=== PATIENT | female | born 1975 | race Caucasian/White ===

== ENCOUNTER 2017-02-22 15:59 | Emergency (ER) | payer OTHER ==
--- NOTE | 2017-02-22 17:50 | ED NURSING NOTES ---
Clinical Report - Nurses [facility] [address] [place] [address] 02/22/2017 16:00 Patient: JOHANNA JACOB TRIAGE Acuity: LEVEL 3. Chief Complaint: VAGINAL BLEEDING. Alert. No acute distress. SEPSIS SCREEN: Sepsis Screen. Negative (no infection suspected/documented). FANNY COMA SCORE: [place] Coma Scale: 15- eyes open spontaneously (4); best verbal response- oriented x 4 (5); best motor response- obeys commands (6). --16:19 Ashely Almaraz R.N. 16:07 02/22/17. BP: 152/60. HR: 92. RR: 18. O2 saturation: 98%. Temp: 98.3 F (oral). Pain level now: 8/10. --16:19 Ashely Almaraz R.N. Weight: 70.3 kg stated. Height/Length: 67 inches Per Patient. BMI: 24.3. --16:16 Ashely Almaraz R.N. Medications Zoloft Oral. --16:12 Ashely Almaraz R.N. Medication/allergy information source: the patient. --16:19 Ashely Almaraz R.N. Allergies No Known Drug Allergy. --16:12 Ashely Almaraz R.N. History Arrived by private vehicle. Historian: patient. Accompanied by friend. Onset. (14 days ago). ( Pt reports she started her period 14 days ago and it has not stopped. Pt states she is soaking a plus size tampon every hour to hour and one half.). Treatment UNION CONTRACT REPRESENTATIVE: None. PAST MEDICAL HX: Last normal menstrual period was 2 weeks ago. No contraception. Has had a tubal ligation. Not sexually active. SOCIAL HX: Current every day light tobacco smoker (cigarette)- less than 1/2 a pack per day. No alcohol use or drug use. FALL RISK ASSESSMENT: Fall risk assessment completed. No fall risk identified. NUTRITIONAL RISK ASSESSMENT: The nutritional risk assessment revealed no deficiencies. FUNCTIONAL ASSESSMENT: Functional assessment: no impairments noted. LEARNING NEEDS ASSESSMENT: The learning needs assessment revealed no barriers. SKIN INTEGRITY ASSESSMENT: Skin integrity risk assessment completed. No skin integrity risk identified. --16:19 Ashely Almaraz R.N. PROBLEMS: Depression. Anxiety disorder. --16:15 Ashely Almaraz R.N. ADDITIONAL SURGERIES: . Tubal Ligation. --16:15 Ashely Almaraz R.N. Assessment GENERAL / NEURO / PSYCH: Alert. Oriented X 4. Appears in no acute distress. Patient appears calm and cooperative. RESPIRATORY: Respirations not labored. CVS: Capillary refill less than 2 seconds. GI / : Abdomen soft and nontender. SKIN: Mucous membranes are pink. Skin is warm and dry. --16:19 Ashely Almaraz R.N. Interventions ID band on patient. To treatment room. --16:19 Ashely Almaraz R.N. PHYSICAL ASSESSMENT 16:19 02/22/17. Ambulatory to room. GENERAL / NEURO / PSYCH: Alert. Oriented X 4. Appears in no acute distress. HEENT: Pupils equal, round and reactive to light. No facial asymmetry noted. Mucous membranes are pink. RESPIRATORY: Respirations not labored. CVS: Capillary refill less than 2 seconds. GI / : Abdomen nontender. SKIN: Skin intact. Skin is warm and dry. Normal skin turgor. --16:19 Ashely Almaraz R.N. NURSING PROGRESS NOTES Patient gowned. Reassurance given. Two patient identifiers checked. Checked patient name and birthdate: patient confirmed. Call light placed in reach. Side rails up x 1. Bed placed in lowest position. Brakes of bed on. Patient ready for evaluation- chart flagged and ED physician and CLIENT ENGAGEMENT MANAGER notified. --16:10 Ashely Almaraz R.N. 16:21 02/22/2017 Site #1 started via IV in the left antecubital space with an 20g angiocath, with aseptic technique and good blood return; one attempt. Blood drawn: rainbow set. Labeled in the presence of the patient and sent to the lab. Saline lock flushed with 10 mL saline. --16:36 Ashely Almaraz R.N. PELVIC EXAM: Pelvic exam performed by CLIENT ENGAGEMENT MANAGER. Assisted by one nurse. Preparation: pelvic tray. Procedure: speculum and bimanual exam. Light amount of vaginal bleeding noted. Specimens collected and sent to lab: wet prep. Status post-procedure: she was stable and no complications were noted. Total time of assist / procedure: 15 minutes. --17:07 Ashely Almaraz R.N. 18:13 02/22/2017 Toradol IVP 30 mg given over 1 minute(s) via site #1. Allergies verified and confirmed 5 rights. IV patency established. IV site checked: no pain, redness, or swelling. IV flushed thoroughly pre- and post-medication administration. IVP given by RN. --18:23 Ashely Almaraz R.N. DISPOSITION / DISCHARGE Departure time: 18:20 Feb 22 2017. Condition at departure: improved and stable. No learning barriers present. Discharge instructions provided and reviewed with the patient. Reviewed medication(s) side effects, precautions and dosing information. Prescription(s) given to the patient (Ultram). Patient verbalized understanding. Written instructions provided in [place]. The patient was discharged by the nurse practitioner. She was discharged home and accompanied by manufacturing production manager. She left the Emergency Department ambulatory and via private vehicle. Occupational Health And Safety Adviser driving. --18:32 Ashely Almaraz R.N. 18:31 02/22/17. BP: 128/73. HR: 74. RR: 16. O2 saturation: 100%. Temp: 98.3 F (oral). Pain level now: 10. --18:32 Ashely Almaraz R.N. 18:18 02/22/2017 Site #1 removed upon discharge. Catheter intact. Manual pressure and bandage applied. --18:33 Ashely Almaraz R.N. Locked/Released at 02/22/2017 18:33 by Ashely Almaraz R.N.
--- NOTE | 2017-02-22 17:50 | ED CLINICAL REPORT ---
Clinical Report - Physicians/Mid Levels [facility] [address] [place] [address] 02/22/2017 16:00 [id number] Time Seen: 16:42; initial patient contact, initial documentation, patient care assumed. Arrived- By private vehicle. Historian- patient. HISTORY OF PRESENT ILLNESS Chief Complaint: VAGINAL BLEEDING. This started about 2 weeks ago and still present. The symptoms are described as moderate. Modifying factors. Not worsened by anything. Not relieved by anything. The patient has had moderate, constant, crampy pelvic pain, described as "pain". She has had abnormal bleeding described as heavier than normal period soaking tampon every hour. No abdominal pain, vaginal pain, low back pain, flank pain or vaginal discharge. No vaginal itching, genital lesions, pain with urination, urinary frequency or urgency of urination. No hematuria. She has recently had irregular periods (periods normally last 4 days, last month she bled for 10 days and this time she is on day 14). They have been longer than normal and consisted of heavier than normal flow. Not sexually active. Denies current . Similar symptoms previously: None. Recent medical care: The patient was seen recently in the office. ( went to her dr last month when this started, pelvic exam normal, nothing else done and no f/u yet, has appt 03/11). REVIEW OF SYSTEMS No vomiting, diarrhea, fever, difficulty breathing or chest pain. All systems otherwise negative, except as recorded above. PAST HISTORY See nurses notes. ( PROBLEMS: Depression. Anxiety disorder. --16:15 Ashely Almaraz, RAllisonN. ADDITIONAL SURGERIES: . Tubal Ligation. --16:15 Ashely Almaraz RRicarda.). SOCIAL HISTORY Light tobacco smoker. No alcohol use or drug use. No recent travel. Is a local resident. FAMILY HISTORY Negative. ADDITIONAL NOTES The nursing notes have been reviewed with agreement regarding the chief complaint, HPI, ROS, PMH and patient medications and allergies. PHYSICAL EXAM Vital Signs: 02/22/2017 16:07 BP: 152/60. HR: 92. RR: 18. O2 saturation: 98%. Temp: 98.3 F. Pain level now: 04/01. Have been reviewed as normal and appear to be correct. Appearance: Alert. Oriented X3. No acute distress. HEENT: Normal external inspection. ENT: Pharynx normal. Neck: Neck supple. CVS: Heart sounds normal. Respiratory: No respiratory distress. Breath sounds normal. Chest nontender. Abdomen: Soft and nontender. Back: Normal external inspection. : External inspection normal. Speculum exam abnormal. Slight vaginal bleeding, consisting of bright red blood, (tampon removed during exam, extra large, approx 20% of tampon soaked in blood, and pt stated she put it in an hour ago). No vaginal bleeding via the cervical os. No vaginal bleeding from a cervical lesion or vaginal laceration. Bimanual exam normal. Skin: Skin warm and dry. Normal skin color. No rash. Normal skin turgor. Extremities: Extremities nontender. No lower extremity edema. Neuro: Oriented X 3. Mood/affect normal. No motor deficit. No sensory deficit. LABS, X-RAYS, AND EKG Laboratory Tests: Serum Qualitative: (DENA: 02/22/2017 16:19) ( [facility] 02/22/2017 17:15) Final results Test Result Flag Units (Reference) , SERUM NEGATIVE CBC w Diff: (DENA: 02/22/2017 16:19) ( [facility] 02/22/[place] 16:49) Final results Test Result Flag Units (Reference) WHITE BLOOD COUNT 8.8 K/uL (4.5-11.5) RED BLOOD COUNT 4.35 M/uL (4.00-5.20) HEMOGLOBIN 12.3 gm/dL (12.0-16.0) HEMATOCRIT 37.2 % (36.0-46.0) MEAN CELL VOLUME 85 fL (80-100) MEAN CORPUSCULAR HGB 28 pg (26-34) MEAN CORPUSCULAR HGB CONC 33 g/dL (31-37) RED CELL DISTRIBUTION WIDTH 15.8 H % (11.6-14.8) PLATELET COUNT 330 K/uL (150-400) NEUTROPHIL % 66.2 % (50-75) LYMPH % 25.3 % (25-40) MONO % 4.6 % (3-14) EOSINOPHIL % 3.3 % (0-4) BASOPHIL % 0.6 % (0-2) BMP: (DENA: 02/22/2017 16:19) ( [facility] 02/22/2017 16:58) Final results Test Result Flag Units (Reference) GLUCOSE 143 H mg/dL (70-110) BUN 11 mg/dL (7-18) CREATININE 0.8 mg/dL (0.6-1.3) Estimated GFR >60 mL/min Estimated GFR- >60 mL/min Note: Persistent reduction over 3 months in eGFR<60 mL/min/1.73 m2 defines CKD. Patients with eGFR values>=60 mL/min/1.73 m2 may also have CKD if evidence ofpersistent proteinuria. Additional information may be foundat www.kidney.org. SODIUM 142 mmol/L (136-145) POTASSIUM 3.5 mmol/L (3.5-5.1) CHLORIDE 105 mmol/L (98-107) CARBON DIOXIDE 27 mmol/L (21-32) CALCIUM 8.4 L mg/dL (8.5-10.1) BETA HCG, QUANTITATIVE <1 mIU/mL REFERENCE RANGE:Adult Males: <2 mIU/mLNon- Females: <6 mIU/mL Females:Approximate Approximate hCGGestational Age Range (mIU/mL) 0-1 week 0-501-2 weeks 40-3002-3 weeks 100-05377-5 weeks 500-00431-7 months 5,000-200,0002-3 months 10,000-100,0002nd trimester 3,000-50,0003rd trimester 1,000-50,000 Wet Prep: (DENA: 02/22/2017 16:55) ( [facility] 02/22/[place] 17:20) Final results SPECIMEN DESCRIPTION: VAGINA Test Result Flag Units (Reference) WET MOUNT CLUE CELLS:: NONE EPITHELIAL CELLS: FEW -- SOURCE?: VAGINAL WHITE BLOOD CELLS: FEW TRICHOMONAS:: NONE -- YEAST:: NONE . PROGRESS AND PROCEDURES Patient counseled in person regarding the patient's stable condition, test results and diagnosis. Differential Diagnosis: I considered vaginitis, vaginal polyps, vaginal lesion, vaginal cancer, vulvar infection, ovarian cysts, polycystic disease of the ovaries, pelvic inflammatory disease, endometriosis, uterine fibroids, uterine hyperplasia, uterine cancer, intrauterine , incomplete , threatened , retained products of , endometritis and dysfunctional uterine bleeding as a possible cause of vaginal bleeding in this patient. Above considerations are based on history, physical exam, reassessment and laboratory data. Differential diagnosis was discussed with patient. Disposition: Discharged in good condition (17:42). Condition: good and stable. CLINICAL IMPRESSION Primary dysmenorrhea INSTRUCTIONS Warnings: GENERAL WARNINGS: Return or contact your physician immediately if your condition worsens or changes unexpectedly, if not improving as expected, or if other problems arise. Specifically return if problem worsens. Prescription Medications: Ultram 50 mg tablets: take 1-2 orally every 6 hours as needed for pain. Dispense twenty (20). No refills. Substitution is permissible. Follow-up: Follow up with your doctor in about three days even if well. Summary of care provided to patient. Understanding of the discharge instructions verbalized by patient. (Electronically signed by Diana Alejo A.R.N.P. 02/22/2017 20:29)
--- NOTE | 2017-02-22 17:50 | ED ORDER SUMMARY ---
..... Patient: JOHANNA JACOB OrderSheet [facility] VisitID: [id number] [place] [address] 41y, F Registration Date/Time: 02/22/2017 ORDER SHEET Weight: 70.3 kg (stated) Allergies: No Known Drug Allergy GENERAL ORDERS: CBC w Diff Urgent (16:35 02/22/2017 MWinterer R.N. per protocol) (Ack 16:36 LNations ER Tech1) (16:39 KWilliams R.N.) BMP Urgent (16:35 02/22/2017 MWinterer R.N. per protocol) (Ack 16:36 LNations ER Tech1) (16:39 KWilliams R.N.) Serum Quantitative Urgent (16:35 02/22/2017 MWinterer R.N. per protocol) (Ack 16:36 LNations ER Tech1) (16:39 KWilliams R.N.) (Cancelled: Other16:47 HBivens A.R.N.P.) Serum Qualitative Urgent (16:48 02/22/2017 HBivens A.R.N.P.) (Ack 17:01 LNations ER Tech1) (17:04 MWinterer R.N.) Pelvic Exam Setup (16:48 02/22/2017 HBivens A.R.N.P.) (Ack 16:54 IJurca ER Tech1) (17:04 MWinterer R.N.) Wet Prep (Vaginal) (vagina) Urgent (17:02 02/22/2017 HBivens A.R.N.P.) (Ack 17:19 LNations ER Tech1) (17:33 MWinterer R.N.) MEDICATION ORDERS: IV FLUIDS: IV Saline Lock (16:35 02/22/2017 MWinterer R.N. per protocol) (16:36 MWinterer R.N.) Toradol IV 30 mg (NOW) (18:05 02/22/2017 HBivens A.R.N.P.) (Ack 18:14 MWinterer R.N.) (18:23 MWinterer R.N.) ORDER SHEET NOTES: [Electronically signed by Ashely Almaraz R.N. (18:33 02/22/2017)] [Electronically signed by Diana Alejo (20:29 02/22/2017)] [Electronically locked/signed by Ashely Almaraz R.N. (18:33 02/22/2017)]
--- NOTE | 2017-02-22 17:50 | ED CLINICAL REPORT ---
Clinical Report - Physicians/Mid Levels [facility] [address] [place] [address] 02/22/2017 16:00 [id number] Time Seen: 16:42; initial patient contact, initial documentation, patient care assumed. Arrived- By private vehicle. Historian- patient. HISTORY OF PRESENT ILLNESS Chief Complaint: VAGINAL BLEEDING. This started about 2 weeks ago and still present. The symptoms are described as moderate. Modifying factors. Not worsened by anything. Not relieved by anything. The patient has had moderate, constant, crampy pelvic pain, described as "pain". She has had abnormal bleeding described as heavier than normal period soaking tampon every hour. No abdominal pain, vaginal pain, low back pain, flank pain or vaginal discharge. No vaginal itching, genital lesions, pain with urination, urinary frequency or urgency of urination. No hematuria. She has recently had irregular periods (periods normally last 4 days, last month she bled for 10 days and this time she is on day 14). They have been longer than normal and consisted of heavier than normal flow. Not sexually active. Denies current . Similar symptoms previously: None. Recent medical care: The patient was seen recently in the office. ( went to her dr last month when this started, pelvic exam normal, nothing else done and no f/u yet, has appt 03/11). REVIEW OF SYSTEMS No vomiting, diarrhea, fever, difficulty breathing or chest pain. All systems otherwise negative, except as recorded above. PAST HISTORY See nurses notes. ( PROBLEMS: Depression. Anxiety disorder. --16:15 Ashely Almaraz, RAllisonN. ADDITIONAL SURGERIES: . Tubal Ligation. --16:15 Ashely Almaraz RRicarda.). SOCIAL HISTORY Light tobacco smoker. No alcohol use or drug use. No recent travel. Is a local resident. FAMILY HISTORY Negative. ADDITIONAL NOTES The nursing notes have been reviewed with agreement regarding the chief complaint, HPI, ROS, PMH and patient medications and allergies. PHYSICAL EXAM Vital Signs: 02/22/2017 16:07 BP: 152/60. HR: 92. RR: 18. O2 saturation: 98%. Temp: 98.3 F. Pain level now: 04/01. Have been reviewed as normal and appear to be correct. Appearance: Alert. Oriented X3. No acute distress. HEENT: Normal external inspection. ENT: Pharynx normal. Neck: Neck supple. CVS: Heart sounds normal. Respiratory: No respiratory distress. Breath sounds normal. Chest nontender. Abdomen: Soft and nontender. Back: Normal external inspection. : External inspection normal. Speculum exam abnormal. Slight vaginal bleeding, consisting of bright red blood, (tampon removed during exam, extra large, approx 20% of tampon soaked in blood, and pt stated she put it in an hour ago). No vaginal bleeding via the cervical os. No vaginal bleeding from a cervical lesion or vaginal laceration. Bimanual exam normal. Skin: Skin warm and dry. Normal skin color. No rash. Normal skin turgor. Extremities: Extremities nontender. No lower extremity edema. Neuro: Oriented X 3. Mood/affect normal. No motor deficit. No sensory deficit. LABS, X-RAYS, AND EKG Laboratory Tests: Serum Qualitative: (DENA: 02/22/2017 16:19) ( [facility] 02/22/2017 17:15) Final results Test Result Flag Units (Reference) , SERUM NEGATIVE CBC w Diff: (DENA: 02/22/2017 16:19) ( [facility] [place] 16:49) Final results Test Result Flag Units (Reference) WHITE BLOOD COUNT 8.8 K/uL (4.5-11.5) RED BLOOD COUNT 4.35 M/uL (4.00-5.20) HEMOGLOBIN 12.3 gm/dL (12.0-16.0) HEMATOCRIT 37.2 % (36.0-46.0) MEAN CELL VOLUME 85 fL (80-100) MEAN CORPUSCULAR HGB 28 pg (26-34) MEAN CORPUSCULAR HGB CONC 33 g/dL (31-37) RED CELL DISTRIBUTION WIDTH 15.8 H % (11.6-14.8) PLATELET COUNT 330 K/uL (150-400) NEUTROPHIL % 66.2 % (50-75) LYMPH % 25.3 % (25-40) MONO % 4.6 % (3-14) EOSINOPHIL % 3.3 % (0-4) BASOPHIL % 0.6 % (0-2) BMP: (DENA: 02/22/2017 16:19) ( [facility] 02/22/2017 16:58) Final results Test Result Flag Units (Reference) GLUCOSE 143 H mg/dL (70-110) BUN 11 mg/dL (7-18) CREATININE 0.8 mg/dL (0.6-1.3) Estimated GFR >60 mL/min Estimated GFR- >60 mL/min Note: Persistent reduction over 3 months in eGFR<60 mL/min/1.73 m2 defines CKD. Patients with eGFR values>=60 mL/min/1.73 m2 may also have CKD if evidence ofpersistent proteinuria. Additional information may be foundat www.kidney.org. SODIUM 142 mmol/L (136-145) POTASSIUM 3.5 mmol/L (3.5-5.1) CHLORIDE 105 mmol/L (98-107) CARBON DIOXIDE 27 mmol/L (21-32) CALCIUM 8.4 L mg/dL (8.5-10.1) BETA HCG, QUANTITATIVE <1 mIU/mL REFERENCE RANGE:Adult Males: <2 mIU/mLNon- Females: <6 mIU/mL Females:Approximate Approximate hCGGestational Age Range (mIU/mL) 0-1 week 0-501-2 weeks 40-3002-3 weeks 100-31314-3 weeks 500-11707-1 months 5,000-200,0002-3 months 10,000-100,0002nd trimester 3,000-50,0003rd trimester 1,000-50,000 Wet Prep: (DENA: 02/22/2017 16:55) ( [facility] [place]/22/[place] 17:20) Final results SPECIMEN DESCRIPTION: VAGINA Test Result Flag Units (Reference) WET MOUNT CLUE CELLS:: NONE EPITHELIAL CELLS: FEW -- SOURCE?: VAGINAL WHITE BLOOD CELLS: FEW TRICHOMONAS:: NONE -- YEAST:: NONE . PROGRESS AND PROCEDURES Patient counseled in person regarding the patient's stable condition, test results and diagnosis. Differential Diagnosis: I considered vaginitis, vaginal polyps, vaginal lesion, vaginal cancer, vulvar infection, ovarian cysts, polycystic disease of the ovaries, pelvic inflammatory disease, endometriosis, uterine fibroids, uterine hyperplasia, uterine cancer, intrauterine , incomplete , threatened , retained products of , endometritis and dysfunctional uterine bleeding as a possible cause of vaginal bleeding in this patient. Above considerations are based on history, physical exam, reassessment and laboratory data. Differential diagnosis was discussed with patient. Disposition: Discharged in good condition (17:42). Condition: good and stable. CLINICAL IMPRESSION Primary dysmenorrhea INSTRUCTIONS Warnings: GENERAL WARNINGS: Return or contact your physician immediately if your condition worsens or changes unexpectedly, if not improving as expected, or if other problems arise. Specifically return if problem worsens. Prescription Medications: Ultram 50 mg tablets: take 1-2 orally every 6 hours as needed for pain. Dispense twenty (20). No refills. Substitution is permissible. Follow-up: Follow up with your doctor in about three days even if well. Summary of care provided to patient. Understanding of the discharge instructions verbalized by patient. (Electronically signed by Diana Alejo A.R.N.P. 02/22/2017 20:29)
--- NOTE | 2017-02-22 17:50 | ED NURSING NOTES ---
Clinical Report - Nurses [facility] [address] [place] [address] 02/22/2017 16:00 Patient: JOHANNA JACOB TRIAGE Acuity: LEVEL 3. Chief Complaint: VAGINAL BLEEDING. Alert. No acute distress. SEPSIS SCREEN: Sepsis Screen. Negative (no infection suspected/documented). FANNY COMA SCORE: [place] Coma Scale: 15- eyes open spontaneously (4); best verbal response- oriented x 4 (5); best motor response- obeys commands (6). --16:19 Ashely Almaraz R.N. 16:07 02/22/17. BP: 152/60. HR: 92. RR: 18. O2 saturation: 98%. Temp: 98.3 F (oral). Pain level now: 8/10. --16:19 Ashely Almaraz R.N. Weight: 70.3 kg stated. Height/Length: 67 inches Per Patient. BMI: 24.3. --16:16 Ashely Almaraz R.N. Medications Zoloft Oral. --16:12 Ashely Almaraz R.N. Medication/allergy information source: the patient. --16:19 Ashely Almaraz R.N. Allergies No Known Drug Allergy. --16:12 Ashely Almaraz R.N. History Arrived by private vehicle. Historian: patient. Accompanied by friend. Onset. (14 days ago). ( Pt reports she started her period 14 days ago and it has not stopped. Pt states she is soaking a plus size tampon every hour to hour and one half.). 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 PAST MEDICAL HX: Last normal menstrual period was 2 weeks ago. No contraception. Has had a tubal ligation. Not sexually active. SOCIAL HX: Current every day light tobacco smoker (cigarette)- less than 1/2 a pack per day. No alcohol use or drug use. FALL RISK ASSESSMENT: Fall risk assessment completed. No fall risk identified. NUTRITIONAL RISK ASSESSMENT: The nutritional risk assessment revealed no deficiencies. FUNCTIONAL ASSESSMENT: Functional assessment: no impairments noted. LEARNING NEEDS ASSESSMENT: The learning needs assessment revealed no barriers. SKIN INTEGRITY ASSESSMENT: Skin integrity risk assessment completed. No skin integrity risk identified. --16:19 Ashely Almaraz R.N. PROBLEMS: Depression. Anxiety disorder. --16:15 Ashely Almaraz R.N. ADDITIONAL SURGERIES: . Tubal Ligation. --16:15 Ashely Almaraz R.N. Assessment GENERAL / NEURO / PSYCH: Alert. Oriented X 4. Appears in no acute distress. Patient appears calm and cooperative. RESPIRATORY: Respirations not labored. CVS: Capillary refill less than 2 seconds. GI / : Abdomen soft and nontender. SKIN: Mucous membranes are pink. Skin is warm and dry. --16:19 Ashely Almaraz R.N. Interventions ID band on patient. To treatment room. --16:19 Ashely Almaraz R.N. PHYSICAL ASSESSMENT 16:19 02/22/17. Ambulatory to room. GENERAL / NEURO / PSYCH: Alert. Oriented X 4. Appears in no acute distress. HEENT: Pupils equal, round and reactive to light. No facial asymmetry noted. Mucous membranes are pink. RESPIRATORY: Respirations not labored. CVS: Capillary refill less than 2 seconds. GI / : Abdomen nontender. SKIN: Skin intact. Skin is warm and dry. Normal skin turgor. --16:19 Ashely Almaraz R.N. NURSING PROGRESS NOTES Patient gowned. Reassurance given. Two patient identifiers checked. Checked patient name and birthdate: patient confirmed. Call light placed in reach. Side rails up x 1. Bed placed in lowest position. Brakes of bed on. Patient ready for evaluation- chart flagged and ED physician and MANAGER EDITORIAL notified. --16:10 Ashely Almaraz R.N. 16:21 02/22/2017 Site #1 started via IV in the left antecubital space with an 20g angiocath, with aseptic technique and good blood return; one attempt. Blood drawn: rainbow set. Labeled in the presence of the patient and sent to the lab. Saline lock flushed with 10 mL saline. --16:36 Ashely Almaraz R.N. PELVIC EXAM: Pelvic exam performed by MANAGER EDITORIAL. Assisted by one nurse. Preparation: pelvic tray. Procedure: speculum and bimanual exam. Light amount of vaginal bleeding noted. Specimens collected and sent to lab: wet prep. Status post-procedure: she was stable and no complications were noted. Total time of assist / procedure: 15 minutes. --17:07 Ashely Almaraz R.N. 18:13 02/22/2017 Toradol IVP 30 mg given over 1 minute(s) via site #1. Allergies verified and confirmed 5 rights. IV patency established. IV site checked: no pain, redness, or swelling. IV flushed thoroughly pre- and post-medication administration. IVP given by RN. --18:23 Ashely Almaraz R.N. DISPOSITION / DISCHARGE Departure time: 18:20 Feb 22 2017. Condition at departure: improved and stable. No learning barriers present. Discharge instructions provided and reviewed with the patient. Reviewed medication(s) side effects, precautions and dosing information. Prescription(s) given to the patient (Ultram). Patient verbalized understanding. Written instructions provided in [place]. The patient was discharged by the nurse practitioner. She was discharged home and accompanied by tetryl wringer operator. She left the Emergency Department ambulatory and via private vehicle. Vp Of Digital Marketing driving. --18:32 Ashely Almaraz R.N. 18:31 02/22/17. BP: 128/73. HR: 74. RR: 16. O2 saturation: 100%. Temp: 98.3 F (oral). Pain level now: 10. --18:32 Ashely Almaraz R.N. 18:18 02/22/2017 Site #1 removed upon discharge. Catheter intact. Manual pressure and bandage applied. --18:33 Ashely Almaraz R.N. Locked/Released at 02/22/2017 18:33 by Ashely Almaraz R.N.
--- NOTE | 2017-02-22 17:50 | ED ORDER SUMMARY ---
..... Patient: JOHANNA JACOB OrderSheet [facility] VisitID: [id number] [place] [address] 41y, F Registration Date/Time: 02/22/2017 ORDER SHEET Weight: 70.3 kg (stated) Allergies: No Known Drug Allergy GENERAL ORDERS: CBC w Diff Urgent (16:35 02/22/2017 MWinterer R.N. per protocol) (Ack 16:36 LNations ER Tech1) (16:39 KWilliams R.N.) BMP Urgent (16:35 02/22/2017 MWinterer R.N. per protocol) (Ack 16:36 LNations ER Tech1) (16:39 KWilliams R.N.) Serum Quantitative Urgent (16:35 02/22/2017 MWinterer R.N. per protocol) (Ack 16:36 LNations ER Tech1) (16:39 KWilliams R.N.) (Cancelled: Other16:47 HBivens A.R.N.P.) Serum Qualitative Urgent (16:48 02/22/2017 HBivens A.R.N.P.) (Ack 17:01 LNations ER Tech1) (17:04 MWinterer R.N.) Pelvic Exam Setup (16:48 02/22/2017 HBivens A.R.N.P.) (Ack 16:54 IJurca ER Tech1) (17:04 MWinterer R.N.) Wet Prep (Vaginal) (vagina) Urgent (17:02 02/22/2017 HBivens A.R.N.P.) (Ack 17:19 LNations ER Tech1) (17:33 MWinterer R.N.) MEDICATION ORDERS: IV FLUIDS: IV Saline Lock (16:35 02/22/2017 MWinterer R.N. per protocol) (16:36 MWinterer R.N.) Toradol IV 30 mg (NOW) (18:05 02/22/2017 HBivens A.R.N.P.) (Ack 18:14 MWinterer R.N.) (18:23 MWinterer R.N.) ORDER SHEET NOTES: [Electronically signed by Ashely Almaraz R.N. (18:33 02/22/2017)] [Electronically signed by Diana Alejo (20:29 02/22/2017)] [Electronically locked/signed by Ashely Almaraz R.N. (18:33 02/22/2017)]
--- NOTE | 2017-02-22 20:30 | ED MED RECONCILIATION SUMMARY ---
Patient: JOHANNA JACOB Medication Reconciliation Report [facility] VisitID: [id number] [address] [place] [address] 41y, F Registration Date/Time: 02/22/2017 Weight: 70.3 kg Height/Length: 67 in. BMI: 24.3 ALLERGIES: No Known Drug Allergy The patient's Home Medications are listed below: THE FOLLOWING MEDICATIONS NEED TO BE RECONCILED: Zoloft Oral The source(s) of the original Home Medication information: patient The following Medications were given to the patient in the Emergency Department: Toradol [IVP] IVP 30 mg, administered: 02/22/2017 6:13:00 PM The following Medications were prescribed to the patient: Ultram 50 mg tablets: take 1-2 orally every 6 hours as needed for pain. Dispense twenty (20). No refills. Substitution is permissible. -- Diana Alejo A.R.N.P.
--- NOTE | 2017-02-22 20:30 | ED DISCHARGE INSTRUCTIONS ---
Patient: JOHANNA JACOB General Instructions [facility] VisitID: [id number] [place] [address] 41y, F Registration Date/Time: 02/22/2017 Primary dysmenorrhea INSTRUCTIONS Warnings: GENERAL WARNINGS: Return or contact your physician immediately if your condition worsens or changes unexpectedly, if not improving as expected, or if other problems arise. Specifically return if problem worsens. Prescription Medications: Ultram 50 mg tablets: take 1-2 orally every 6 hours as needed for pain. Dispense twenty (20). No refills. Substitution is permissible. Follow-up: Follow up with your doctor in about three days even if well. Summary of care provided to patient. Understanding of the discharge instructions verbalized by patient. ADDITIONAL INFORMATION Painful Menstrual Periods The uterus is a muscle and contracts normally during the menstrual cycle. The contraction pushes out the build-up of tissue that occurs each month inside the uterus. If the contraction is very strong, it can cause pain because the muscle is not getting enough oxygen for the amount of work it is doing. Pain with menstruation is called dysmenorrhea. The pain may feel like a dull ache or throbbing in the lower abdomen. It may spread to your lower back or inner thighs. In severe cases there may also be nausea, vomiting, loose stools, sweating or dizziness. There are two types of dysmenorrhea: Primary Dysmenorrhea (common menstrual cramps) usually appears within one or two years after you start your periods. It usually gets better or goes away as you get older or when you have a baby. The menstrual cramps usually start just before, or on the day of your period, and last 1-3 days. Treatment is with comfort measures and anti-inflammatory drugs as described below (see Home Care). If your pain is not controlled with these measures, your doctor may prescribe control pills. This will reduce the pain of each period. Secondary Dysmenorrhea starts later in life. The pain begins earlier in the menstrual cycle and lasts longer than common menstrual cramps. It is caused by a specific problem with the pelvic organs, such as: PID (pelvic inflammatory disease) -- an infection in the fallopian tubes Fibroids benign tumors within the wall of the uterus (not cancer) Endometriosis the tissue that lines the uterus spreads outside the uterus and grows there. This tissue swells and bleeds each month, just like the tissue in your uterus, and causes pain. IUD use -- especially in the first few months after placement Once the cause of secondary dysmenorrhea is found, it can be treated. Home Care: Most women with common menstrual cramping (primary dysmenorrhea) can remain active throughout their period. Many women find that regular exercise each werek reduces menstrual pain. If cramping is severe, rest in bed with a heating pad on the lower abdomen or lower back. A hot bath or massage to the lower back and abdomen may also give relief. Smoking can make symptoms worse. If you smoke, ask your doctor for help with a stop-smoking plan. Avoid caffeine and alcohol around the time of your period since these can make symptoms worse. Anti-inflammatory medicine such as aspirin, ibuprofen (Advil, Motrin) or naproxen (Aleve, Naprosyn) can be very helpful, especially if taken at the very first signs of bleeding or cramping . Acetaminophen (Tylenol) is not as effective for this problem. [NOTE: If you have chronic liver or kidney disease or ever had a stomach ulcer or GI bleeding, talk with your doctor before using these medicines.] If your pain is not controlled by the above measures, a prescription pain medicine may be required for a short time. Discuss this with your doctor. Follow Up with your doctor as advised. If you have just started menstruating in the past 1-2 years, and your pain is mild to moderate, your symptoms are most likely not a cause for concern. However, if menstrual cramps are severe enough to interfere with your daily activities, last longer than a few days, or if you are older and just started having menstrual pain, it is important to see your doctor for further evaluation. Get Prompt Medical Attention if any of the following occur: Fever over 100.4F (38.0C) with pelvic pain Uncontrolled menstrual pain or pain that lasts longer than usual or occurs between periods Unusual vaginal discharge between periods Heavy vaginal bleeding (soaking more than one pad an hour for three hours) Passage of pink or [place] tissue from the vagina If you use tampons, watch for the following signs of Toxic Shock Syndrome and return at once: Fever over 102.0F (38.9C), with or without pelvic pain Vomiting, diarrhea Dizziness, weakness or fainting Rash that looks like a bad sunburn Tramadol Hydrochloride Oral tablet What is this medicine? TRAMADOL (TRA ma dole) is a pain reliever. It is used to treat moderate to severe pain in adults. How should I use this medicine? Take this medicine by mouth with a full glass of water. Follow the directions on the prescription label. If the medicine upsets your stomach, take it with food or milk. Do not take more medicine than you are told to take. Talk to your harvesting manager regarding the use of this medicine in children. Special care may be needed. What side effects may I notice from receiving this medicine? Side effects that you should report to your doctor or health critical care specialist as soon as possible: allergic reactions like skin rash, itching or hives, swelling of the face, lips, or tongue breathing difficulties, wheezing confusion itching light headedness or fainting spells redness, blistering, peeling or loosening of the skin, including inside the mouth seizures Side effects that usually do not require medical attention (report to your doctor or health critical care specialist if they continue or are bothersome): constipation dizziness drowsiness headache nausea, vomiting What may interact with this medicine? Do not take this medicine with any of the following medications: MAOIs like Carbex, Eldepryl, Marplan, Nardil, and Parnate This medicine may also interact with the following medications: alcohol or medicines that contain alcohol antihistamines benzodiazepines bupropion carbamazepine or oxcarbazepine clozapine cyclobenzaprine digoxin furazolidone linezolid medicines for depression, anxiety, or psychotic disturbances medicines for migraine headache like almotriptan, eletriptan, frovatriptan, naratriptan, rizatriptan, sumatriptan, zolmitriptan medicines for pain like pentazocine, buprenorphine, butorphanol, meperidine, nalbuphine, and propoxyphene medicines for sleep muscle relaxants naltrexone phenobarbital phenothiazines like perphenazine, thioridazine, chlorpromazine, mesoridazine, fluphenazine, prochlorperazine, promazine, and trifluoperazine procarbazine warfarin What if I miss a dose? If you miss a dose, take it as soon as you can. If it is almost time for your next dose, take only that dose. Do not take double or extra doses. Where should I keep my medicine? Keep out of the reach of children. Store at room temperature between 15 and 30 degrees C (59 and 86 degrees F). Keep container tightly closed. Throw away any unused medicine after the expiration date. What should I tell my health care provider before I take this medicine? They need to know if you have any of these conditions: brain tumor depression drug abuse or addiction head injury if you frequently drink alcohol containing drinks kidney disease or trouble passing urine liver disease lung disease, asthma, or breathing problems seizures or epilepsy suicidal thoughts, plans, or attempt; a previous suicide attempt by you or a family member an unusual or allergic reaction to tramadol, codeine, other medicines, foods, dyes, or preservatives or trying to get breast-feeding What should I watch for while using this medicine? Tell your doctor or health critical care specialist if your pain does not go away, if it gets worse, or if you have new or a different type of pain. You may develop tolerance to the medicine. Tolerance means that you will need a higher dose of the medicine for pain relief. Tolerance is normal and is expected if you take this medicine for a long time. Do not suddenly stop taking your medicine because you may develop a severe reaction. Your body becomes used to the medicine. This does NOT mean you are addicted. Addiction is a behavior related to getting and using a drug for a non-medical reason. If you have pain, you have a medical reason to take pain medicine. Your doctor will tell you how much medicine to take. If your doctor wants you to stop the medicine, the dose will be slowly lowered over time to avoid any side effects. You may get drowsy or dizzy. Do not drive, use machinery, or do anything that needs mental alertness until you know how this medicine affects you. Do not stand or sit up quickly, especially if you are an older patient. This reduces the risk of dizzy or fainting spells. Alcohol can increase or decrease the effects of this medicine. Avoid alcoholic drinks. You may have constipation. Try to have a bowel movement at least every 2 to 3 days. If you do not have a bowel movement for 3 days, call your doctor or health critical care specialist. Your mouth may get dry. Chewing sugarless gum or sucking hard candy, and drinking plenty of water may help. Contact your doctor if the problem does not go away or is severe. You have been given the following additional information: Dysmenorrhea Tramadol Hydrochloride Oral tablet (Electronically signed by Diana Alejo A.R.N.P. 02/22/2017 20:29)
--- NOTE | 2017-02-22 20:30 | ED MAR SUMMARY ---
..... Medication Administration Record [facility] [address] [place] [address] Patient: JOHANNA JACOB Visit ID: [id number] 41y, F Weight: 70.3 kg Height/Length: 67 in BMI: 24.3 ALLERGIES: No Known Drug Allergy Given 18:13 02/22/2017 Ashely Almaraz R.N. Medication Administered: TORADOL [IVP], Dose: 30 mg IVP over 1 minute(s), Site: #1 left AC. Medication Ordered: Toradol IV 30 mg (NOW).
--- NOTE | 2017-02-22 20:30 | ED MED RECONCILIATION SUMMARY ---
Patient: JOHANNA JACOB Medication Reconciliation Report [facility] VisitID: [id number] [address] [place] [address] 41y, F Registration Date/Time: 02/22/2017 Weight: 70.3 kg Height/Length: 67 in. BMI: 24.3 ALLERGIES: No Known Drug Allergy The patient's Home Medications are listed below: THE FOLLOWING MEDICATIONS NEED TO BE RECONCILED: Zoloft Oral The source(s) of the original Home Medication information: patient The following Medications were given to the patient in the Emergency Department: Toradol [IVP] IVP 30 mg, administered: 02/22/2017 6:13:00 PM The following Medications were prescribed to the patient: Ultram 50 mg tablets: take 1-2 orally every 6 hours as needed for pain. Dispense twenty (20). No refills. Substitution is permissible. -- Diana Alejo A.R.N.P.
--- NOTE | 2017-02-22 20:30 | ED MAR SUMMARY ---
..... Medication Administration Record [facility] [address] [place] [address] Patient: JOHANNA JACOB Visit ID: [id number] 41y, F Weight: 70.3 kg Height/Length: 67 in BMI: 24.3 ALLERGIES: No Known Drug Allergy Given 18:13 02/22/2017 Ashely Almaraz R.N. Medication Administered: TORADOL [IVP], Dose: 30 mg IVP over 1 minute(s), Site: #1 left AC. Medication Ordered: Toradol IV 30 mg (NOW).
== END 2017-02-22 18:20 | disposition home or self-care (01) ==
LOC: ED SRH 15:59
DX: N94.4 Primary dysmenorrhea (principal); Z79.899 Other long term (current) drug therapy; F17.210 Nicotine dependence, cigarettes, uncomplicated
CPT/HCPCS: 90047; 90195; 90197; 95059; 98428